=== PATIENT | female | born 1955 | race Caucasian/White ===

== ENCOUNTER 2017-11-23 14:38 | Emergency (ER) | payer OTHER ==
--- NOTE | 2017-11-23 22:07 | RAD ---
LEFT ANKLE THREE VIEWS: Date: 11-23-17 FINDINGS: Mild soft tissue swelling is present. No fracture or acute bony change was seen. The ankle mortise wa s unremarkable. Old trauma is suggested medially. IMPRESSION: No acute bony finding. POS: HOME
--- NOTE | 2017-11-23 22:23 | RAD ---
LEFT FOOT THREE VIEWS: Date: 11-23-17 FINDINGS: A displaced oblique fracture is seen through the distal fifth metatarsal shaft. The distal fragment w as displaced medially. The remainder of the foot appears intact. IMPRESSION: Displaced fracture of the distal fifth metatarsal shaft. POS: HOME
== END 2017-11-23 15:36 | disposition home or self-care (01) ==
LOC: BURERS 14:38
DX: S92.352A Displaced fracture of fifth metatarsal bone, left foot, initial encounter for closed fracture (principal); K21.9 Gastro-esophageal reflux disease without esophagitis; I10 Essential (primary) hypertension; X50.1XXA Overexertion from prolonged static or awkward postures, initial encounter
CPT/HCPCS: 29515